=== PATIENT | female | born 1940 | race Caucasian/White ===

== ENCOUNTER 2018-10-19 11:28 | Emergency (ER) | payer OTHER ==
[~2018-10-19] VITALS: Ht 152.4 cm; Wt 61.2 kg
[2018-10-19] MEDS ORDERED: DIOVAN HCT 3201 EACH (12:01)
[2018-10-19] MEDS ORDERED: TENORMIN100 MG (12:01)
[2018-10-19] MEDS ORDERED: CLONIDINE HCL0.2 MG (12:02)
[2018-10-19] MEDS ORDERED: [UNRECOGNIZED DRUG - OTHER] (12:03)
== END 2018-10-19 13:56 | disposition home or self-care (01) ==
LOC: ER 11:28
DX: J09.X2 Influenza due to identified novel influenza A virus with other respiratory manifestations (principal); B34.9 Viral infection, unspecified; R50.9 Fever, unspecified